=== PATIENT | male | born 1980 | race African-American/Black ===

== ENCOUNTER 2016-07-26 20:26 | Inpatient (IN) | payer OTHER ==
[~2016-07-26] VITALS: Ht 175.3 cm; Wt 73.9 kg
[2016-07-26 20:52] VITALS: BP 183/85; PULSE 91; RESP 16; TEMP 98.4; O2SAT 100
--- NOTE | 2016-07-26 21:01 | PD ---
HPI . Suicidal ideation Chief Complaint: Suicide attempt Time Seen by Provider: 20:54 Travel History International Travel<30 days: No Contact w/Intl Traveler<30days: No History of Present Illness HPI Patient is brought in under the [place] Act for a suicide attempt. He took 60 Excedrin at 6 PM. He states that he became nauseous following the ingestion and vomited some pills in a public bathroom. This was witnessed. The witness called the authorities and the patient was brought here. Patient lives at the [facility]. He states that he has recently realized that he might be birch. This is very concerning to him which has caused to feel suicidal. He reports no concerns about possible STD/HIV. PFSH Social History Tobacco Use: Yes Allergies-Medications (Allergen,Severity, Reaction): Coded Allergies: No Known Allergies (Unverified , 07/26/16) Reported Meds & Prescriptions Reported Meds & Active Scripts Active Reported Antabuse (Disulfiram) 250 Mg Tab 250 Mg PO DAILY Celexa (Citalopram Hydrobromide) 20 Mg Tab 20 Mg PO DAILY Hydrochlorothiazide 12.5 Mg Cap 12.5 Mg PO DAILY Amlodipine (Amlodipine Besylate) 5 Mg Tab 5 Mg PO DAILY Review of Systems Except as stated in HPI: all other systems reviewed are Neg Psychiatric: Positive: Depression, Suicidal Ideations Physical Exam Narrative GENERAL: This is a pleasant, healthy-appearing man in no acute distress. SKIN: Warm and dry. HEAD: Atraumatic. Normocephalic. EYES: Pupils equal and round. Extraocular movements are intact. ENT: No nasal bleeding or discharge. Mucous membranes pink and moist. NECK: Trachea midline. Neck is supple. CARDIOVASCULAR: Regular rate and rhythm. Heart sounds are normal. RESPIRATORY: No accessory muscle use. Lungs are clear with full air movement throughout. GASTROINTESTINAL: Abdomen soft, non-tender, nondistended. MUSCULOSKELETAL: No obvious deformities. No edema. NEUROLOGICAL: Awake and alert. No obvious cranial nerve deficits. Motor grossly within normal limits. Normal speech. PSYCHIATRIC: Appropriate interaction with the examiner. Good eye contact. Suicidal ideation with a plan and an attempt. Data Data Last Documented VS Vital Signs Date Time Temp Pulse Resp B/P Pulse Ox O2 Delivery O2 Flow Rate FiO2 07/27/16 04:03 86 16 127/66 99 Room Air 07/26/16 22:52 98.4 Orders Complete Blood Count With Diff (07/26/16 20:54) Comprehensive Metabolic Panel (07/26/16 20:54) Psych Screen (07/26/16 20:54) Drug Screen, Random Urine (07/26/16 20:54) Alcohol (Ethanol) (07/26/16 20:54) Tylenol (Acetaminophen) (07/26/16 22:00) Salicylates (Aspirin) (07/26/16 22:00) Ondansetron Inj (Zofran Inj) (07/26/16 21:45) Dextrose 5% In [place]... W/Sodium Bicarbon (07/26/16 22:30) Tylenol (Acetaminophen) (07/27/16 01:00) Salicylates (Aspirin) (07/27/16 01:00) Sodium Chlor 0.9% 1000 Ml Inj (Ns 1000 M (07/26/16 22:30) Sodium Bicarbonate 8.4% Inj (Sodium Bica (07/26/16 22:30) Sodium Bicarbonate 8.4% Inj (Sodium Bica (07/26/16 22:55) Ondansetron Inj (Zofran Inj) (07/27/16 01:15) Ua With No Microscopy (07/27/16 01:48) Dextrose 5% In [place]... W/Sodium Bicarbon (07/27/16 02:00) Sodium Bicarbonate 8.4% Inj (Sodium Bica (07/27/16 02:00) Blood Gas Venous (Vbg) (07/27/16 01:48) Basic Metabolic Panel (Bmp) (07/27/16 01:48) Basic Metabolic Panel (Bmp) (07/27/16 05:48) Basic Metabolic Panel (Bmp) (07/27/16 09:48) Basic Metabolic Panel (Bmp) (07/27/16 13:48) Basic Metabolic Panel (Bmp) (07/27/16 17:48) Basic Metabolic Panel (Bmp) (07/27/16 21:48) Sodium Bicarbonate 8.4% Inj (Sodium Bica (07/27/16 01:57) Salicylates (Aspirin) (07/27/16 02:11) Salicylates (Aspirin) (07/27/16 05:11) Salicylates (Aspirin) (07/27/16 08:11) Salicylates (Aspirin) (07/27/16 11:11) Potassium Chloride (Kcl) (07/27/16 03:00) Ua With No Microscopy (07/27/16 03:28) Urinary Catheter Insert/Apply (07/27/16 03:47) Labs Laboratory Tests Test 07/26/16 07/26/16 07/26/16 07/27/16 20:55 21:15 21:50 00:55 White Blood Count 13.2 TH/MM3 Red Blood Count 5.79 MIL/MM3 Hemoglobin 13.4 GM/DL Hematocrit 40.8 % Mean Corpuscular Volume 70.5 FL Mean Corpuscular Hemoglobin 23.1 PG Mean Corpuscular Hemoglobin 32.8 % Concent Red Cell Distribution Width 16.3 % Platelet Count 247 TH/MM3 Mean Platelet Volume 8.3 FL Neutrophils (%) (Auto) 67.6 % Lymphocytes (%) (Auto) 20.5 % Monocytes (%) (Auto) 10.2 % Eosinophils (%) (Auto) 0.9 % Basophils (%) (Auto) 0.8 % Neutrophils # (Auto) 8.9 TH/MM3 Lymphocytes # (Auto) 2.7 TH/MM3 Monocytes # (Auto) 1.3 TH/MM3 Eosinophils # (Auto) 0.1 TH/MM3 Basophils # (Auto) 0.1 TH/MM3 CBC Comment AUTO DIFF Differential Comment AUTO DIFF CONFIRMED Platelet Estimate NORMAL Platelet Morphology Comment ENLARGED Sodium Level 139 MEQ/L Potassium Level 3.4 MEQ/L Chloride Level 100 MEQ/L Carbon Dioxide Level 27.8 MEQ/L Anion Gap 11 MEQ/L Blood Urea Nitrogen 8 MG/DL Creatinine 1.35 MG/DL Estimat Glomerular Filtration 72 ML/MIN Rate Random Glucose 132 MG/DL Calcium Level 9.3 MG/DL Total Bilirubin 0.1 MG/DL Aspartate Amino Transf 45 U/L (AST/SGOT) Alanine Aminotransferase 65 U/L (ALT/SGPT) Alkaline Phosphatase 80 U/L Total Protein 8.2 GM/DL Albumin 4.0 GM/DL Acetaminophen Level 43.6 MCG/ML 43.6 MCG/ML Ethyl Alcohol Level LESS THAN 3 MG/DL Urine Opiates Screen NEG Urine Barbiturates Screen NEG Urine Amphetamines Screen NEG Urine Benzodiazepines Screen NEG Urine Cocaine Screen NEG Urine Cannabinoids Screen NEG Salicylates Level 28.8 MG/DL 29.4 MG/DL Test 07/27/16 02:00 Urine Color LIGHT-YELLOW Urine Turbidity CLEAR Urine pH 6.0 Urine Specific [place] 1.023 Urine Protein TRACE mg/dL Urine Glucose (UA) 1000 mg/dL Urine Ketones 10 mg/dL Urine Occult Blood NEG Urine Nitrite NEG Urine Bilirubin NEG Urine Urobilinogen LESS THAN 2.0 MG/DL Urine Leukocyte Esterase NEG Blood Gas Puncture Site PIV Blood Gas Patient Temperature 98.6 Venous Blood pH 7.41 Venous Blood Partial Pressure 34 mmHg CO2 Venous Blood Partial Pressure 52 mmHg O2 Venous Blood HCO3 21 mmol/L Venous Blood Oxygen Saturation 85 % Venous Blood Oxygen Content 15.1 Vol % Venous Blood Base Excess -2.6 mmol/L Oxygen Delivery Device ROOM AIR Blood Gas Inspired Oxygen 21 % Sodium Level 137 MEQ/L Potassium Level 2.8 MEQ/L Chloride Level 101 MEQ/L Carbon Dioxide Level 22.8 MEQ/L Anion Gap 13 MEQ/L Blood Urea Nitrogen 8 MG/DL Creatinine 1.59 MG/DL Estimat Glomerular Filtration 60 ML/MIN Rate Random Glucose 300 MG/DL Calcium Level 8.3 MG/DL MDM Medical Decision Making Medical Screen Exam Complete: Yes Emergency Medical Condition: Yes Differential Diagnosis Differential diagnosis includes but is not limited to depression with suicidal gesture, suicide attempt, suicidal ideation, attention seeking behavior. Narrative Course Patient presents under the Worrell Act for suicide attempt. He took Excedrin. I have ordered the usual psych medical clearance with the addition of a Tylenol and aspirin level at 10 PM which will be 4 hours after the reported ingestion. CBC & BMP Diagram 07/26/16 20:55 Acetaminophen level was 43.6 at about 9 PM. Aspirin level was 28.8 at 10 PM. I have queried up-to-date regarding management. I have ordered an amp of bicarbonate followed by a bicarbonate drip. The Tylenol and aspirin levels will be repeated at 1 AM. Patient's Tylenol and alcohol levels were about the same 2 hours later. Poison control was contacted. They are not concerned about the Tylenol level. They are concerned about the aspirin. They have suggested more aggressive alkalinization. Repeat aspirin levels have been ordered for every 3 hours. We will monitor his urine pH. Repeat potassium has dropped 2.9. Supplemental oral potassium has been ordered. He'll have another BMP done in another 4 hours. Critical Care Narrative Aggregate critical care time was 75 minutes. Time to perform other separately billable procedures was not included in the critical care time. My time did not include minutes spent treating any other patients simultaneously or on activities that did not directly contribute to the patient's treatment. The services I provided to this patient were to treat and/or prevent clinically significant deterioration due to aspirin and Tylenol overdose I provided critical care services requiring my management, as noted below: Chart data review, documentation time, medication orders and management, vital sign assessments/reviewing monitor data, ordering and reviewing lab tests, ordering and interpreting/reviewing x-rays and diagnostic studies, care of the patient and discussion of the patient with the admitting physicians Diagnosis Primary Impression: Intentional acetaminophen overdose Qualified Code: T39.1X2A - Intentional acetaminophen overdose, initial encounter Additional Impressions: Intentional aspirin overdose Qualified Code: T39.012A - Intentional aspirin overdose, initial encounter Suicidal ideation Admitting Information Admitting Physician Requests: Admit Condition: Stable Luda Patel MD July 26, 2016 21:00
[2016-07-26] MEDS ORDERED: CELE20TA PO ×2 (21:03)
[2016-07-26] MEDS ORDERED: HYDR12.57 PO ×2 (21:03)
[2016-07-26] MEDS ORDERED: ANTA250T PO ×2 (21:03)
[2016-07-26] MEDS ORDERED: AMLO5TAB2 PO (21:03)
[2016-07-26 21:20] LABS: AUTOMATED NEUTROPHIL # 8.9 TH/MM3 (1.8-7.7); BASOPHIL # 0.1 TH/MM3 (0-0.2); BASOPHIL % 0.8 % (0.0-2.0); EOSINOPHIL # 0.1 TH/MM3 (0-0.4); EOSINOPHIL % 0.9 % (0.0-4.0); HEMATOCRIT 40.8 % (39.0-51.0); LYMPH % 20.5 % (9.0-44.0); LYMPHOCYTE # 2.7 TH/MM3 (1.0-4.8); MEAN CELL VOLUME 70.5 FL (80.0-100.0); MEAN CORPUSCULAR HEMOGLOBIN 23.1 PG (27.0-34.0); MEAN CORPUSCULAR HGB CONC 32.8 % (32.0-36.0); MONO % 10.2 % (0.0-8.0); NEUT % 67.6 % (16.0-70.0); PLATELET COUNT 247 TH/MM3 (150-450); RED BLOOD COUNT 5.79 MIL/MM3 (4.50-5.90); RED CELL DISTRIBUTION WIDTH 16.3 % (11.6-17.2); WHITE BLOOD COUNT 13.2 TH/MM3 (4.0-11.0)
[2016-07-26 21:25] LABS: HEMO FLAGS AUTO DIFF
[2016-07-26 21:44] LABS: AMPHETAMINE, URINE NEG (NEG); BARBITURATES, URINE NEG (NEG); COCAINE, URINE NEG (NEG)
[2016-07-26] MEDS ORDERED: ONDANSETRON HCL 4 MG/2 ML VIAL IV PUSH ONE (21:45)
[2016-07-26 22:03] LABS: PLATELET ESTIMATE SMEAR NORMAL (NORMAL); PLATELET MORPHOLOGY ENLARGED (NORMAL); SCAN/DIFF AUTO DIFF CONFIRMED
[2016-07-26 22:15] LABS: ACETAMINOPHEN 43.6 MCG/ML (10.0-30.0); ALKALINE PHOSPHATASE 80 U/L (45-117); ALT (GPT) 65 U/L (12-78); ANION GAP 11 MEQ/L (5-15); AST (GOT) 45 U/L (15-37); BICARBONATE 27.8 MEQ/L (21.0-32.0); BLOOD UREA NITROGEN 8 MG/DL (7-18); CHLORIDE 100 MEQ/L (98-107); GLOMERULAR FILTRATION RATE 72 ML/MIN (>89); POTASSIUM 3.4 MEQ/L (3.5-5.1); SODIUM (NA) 139 MEQ/L (136-145); TOTAL BILIRUBIN ADULT 0.1 MG/DL (0.2-1.0)
[2016-07-26] MEDS ORDERED: SODIUM BICARBONATE 8.4% INJ 100 MEQ in DEXTROSE 5% IN WATE 1000ML INJ 1,000 ML IV SCH ×2 (22:30)
[2016-07-26] MEDS ORDERED: SODIUM BICARBONATE 8.4% INJ 50 MEQ/50 ML SYR IV PUSH ONE (22:30)
[2016-07-26] MEDS ORDERED: SODIUM CHLOR 0.9% 1000 ML INJ 1,000 ML IV ONE (22:30)
[2016-07-26 22:52] VITALS: BP 170/85; PULSE 100; RESP 20; TEMP 98.4; O2SAT 100
[2016-07-26] MEDS ORDERED: SODIUM BICARBONATE 8.4% INJ 50 MEQ/50 ML SYR ONE (22:55)
[2016-07-27] VITALS (10 sets, daily range): BP systolic 110–163; BP diastolic 54–74; PULSE 76–97; RESP 15–23; TEMP 98.4–98.6; O2SAT 98–100
[2016-07-27] MEDS ORDERED: ONDANSETRON HCL 4 MG/2 ML VIAL IV PUSH ONE (01:15)
[2016-07-27] MEDS ORDERED: SODIUM BICARBONATE 8.4% INJ 50 MEQ/50 ML SYR ONE (01:57)
[2016-07-27] MEDS: SODIUM BICARBONATE 8.4% INJ 150 MEQ in DEXTROSE 5% IN WATE 1000ML INJ 1,000 ML IV SCH ×4 (02:00→08:04)
[2016-07-27] MEDS ORDERED: SODIUM BICARBONATE 8.4% INJ 50 MEQ/50 ML SYR IV PUSH ONE (02:00)
[2016-07-27 02:07] LABS: BLOOD GAS VENOUS BASE EXCESS -2.6 mmol/L (-2-2); BLOOD GAS VENOUS HCO3 21 mmol/L (22-26); BLOOD GAS VENOUS O2 CONTENT 15.1 Vol % (9.0-17.0); BLOOD GAS VENOUS O2 HGB SAT 85 % (70-76); BLOOD GAS VENOUS PCO2 34 mmHg (44-48); BLOOD GAS VENOUS PO2 52 mmHg (35-40); BLOOD GAS VENOUS pH 7.41 (7.360-7.400); CRITICAL VALUE NO; DRAW SITE PIV; FIO2 21 %; OXYGEN DEVICE ROOM AIR; STAT NO; TEMP CORR TO 98.6
[2016-07-27 02:15] LABS: BLOOD, URINE NEG (NEG); GLUCOSE,URINE 1000 mg/dL (NEG); KETONE, URINE 10 mg/dL (NEG); NITRITE,URINE NEG (NEG); URINE COLOR LIGHT-YELLOW (YELLW/STRAW)
[2016-07-27 02:39] LABS: BICARBONATE 22.8 MEQ/L (21.0-32.0)
[2016-07-27 02:43] LABS: POTASSIUM 2.8 MEQ/L (3.5-5.1)
[2016-07-27] MEDS: POTASSIUM CHLORIDE 20 MEQ CONTROLLED RELEASE TAB PO SCH ×4 (03:00→08:05)
[2016-07-27 04:30] LABS: BLOOD, URINE NEG (NEG); GLUCOSE,URINE 1000 mg/dL (NEG); KETONE, URINE 10 mg/dL (NEG); NITRITE,URINE NEG (NEG); PH, URINE 5.5 (5.0-8.5); URINE COLOR LIGHT-YELLOW (YELLW/STRAW)
[2016-07-27 05:12] LABS: BLOOD, URINE NEG (NEG); GLUCOSE,URINE 1000 mg/dL (NEG); KETONE, URINE 10 mg/dL (NEG); NITRITE,URINE NEG (NEG); URINE COLOR LIGHT-YELLOW (YELLW/STRAW)
[2016-07-27] MEDS ORDERED: SODIUM CHLORIDE 0.9% FLUSH 10 ML FLUSH PRN (05:15)
[2016-07-27] MEDS ORDERED: RESP: ALBUTEROL 2.5 MG/IPRATROPIUM 0.5 MG NEB (PRN) INH (05:15)
[2016-07-27] MEDS ORDERED: CHLORHEXIDINE GLUCONATE 2 % 1 PACK (2 CLOTHS) TOP PRN (05:15)
[2016-07-27] MEDS ORDERED: MISCELLANEOUS NURSING INFORMATION XX SCH (05:15)
--- NOTE | 2016-07-27 05:19 | HHI.HP ---
[facility] Service Critical Care Medicine Primary Care Physician [facility] Admission Diagnosis aspirin OD Diagnosis: Travel History International Travel<30 Days: No Contact w/Intl Traveler <30 Da: No Traveled to Known Affected Are: No History of Present Illness 36-year-old very pleasant gentleman is brought in under the Worrell Act for a suicide attempt. He took 60 Excedrin at 6 PM. He states that he became nauseous following the ingestion and vomited some pills in a public bathroom. This was witnessed. The witness called the authorities and the patient was brought here. Patient lives at the [facility]. He states that he has recently realized that he might be birch. This is very concerning to him which has caused to feel suicidal. Review of Systems Constitutional: DENIES: Diaphoretic episodes, Fatigue, Fever, Weight gain, Weight loss, Chills, Dizziness, Change in appetite, Night Sweats Endocrine: DENIES: Heat/cold intolerance, Polydipsia, Polyuria, Polyphagia Eyes: DENIES: Blurred vision, Diplopia, Eye inflammation, Eye pain, Vision loss , Photosensitivity, Double Vision Ears, nose, mouth, throat: DENIES: Tinnitus, Hearing loss, Vertigo, Nasal discharge, Oral lesions, Throat pain, Hoarseness, Ear Pain, Running Nose, Epistaxis, Sinus Pain, Toothache, Odynophagia Respiratory: DENIES: Apneas, Cough, Snoring, Wheezing, Hemoptysis, Sputum production, Shortness of breath Cardiovascular: DENIES: Chest pain, Palpitations, Syncope, Dyspnea on Exertion , PND, Lower Extremity Edema, Orthopnea, Claudication Gastrointestinal: COMPLAINS OF: Nausea, Vomiting, DENIES: Abdominal pain, Black stools, Bloody stools, Constipation, Diarrhea, Difficulty Swallowing, Anorexia Genitourinary: DENIES: Sexual dysfunction, Urinary frequency, Urinary incontinence, Urgency, Hematuria, Dysuria, Nocturia, Penile Discharge, Testicular Pain, Testicular Swelling Musculoskeletal: DENIES: Joint pain, Muscle aches, Stiffness, Joint Swelling, Back pain, Neck pain Integumentary: DENIES: Abnormal pigmentation, Nail changes, Pruritus, Rash Hematologic/lymphatic: DENIES: Bruising, Lymphadenopathy Immunologic/allergic: DENIES: Eczema, Urticaria Neurologic: DENIES: Abnormal gait, Headache, Localized weakness, Paresthesias, Seizures, Speech Problems, Tremor, Poor Balance Psychiatric: COMPLAINS OF: Depression, Suicidal Ideation, DENIES: Anxiety, Confusion, Mood changes, Hallucinations, Agitation, Homicidal Ideation, Delusions Past Family Social History Allergies: Coded Allergies: No Known Allergies (Unverified , 07/26/16) Past Medical History Hypertension Past Surgical History None Reported Medications Reported Meds & Active Scripts Active Reported Antabuse (Disulfiram) 250 Mg Tab 250 Mg PO DAILY Celexa (Citalopram Hydrobromide) 20 Mg Tab 20 Mg PO DAILY Hydrochlorothiazide 12.5 Mg Cap 12.5 Mg PO DAILY Amlodipine (Amlodipine Besylate) 5 Mg Tab 5 Mg PO DAILY Active Ordered Medications Current Medications Medications (Trade) Dose Ordered Sig/Arturo Route PRN Reason Start Time Stop Time Status Last Admin Dose Admin Sodium Bicarbonate/ Dextrose (Sodium Bicarbonate 8.4% Inj/D5W 1000 ml Inj) 1,150 ml @ 250 mls/hr Q4H36M IV 07/27/16 02:00 07/27/16 02:00 Sodium Chloride (NS Flush) 2 ml UNSCH PRN .XX FLUSH AFTER USING IV ACCESS 07/27/16 05:15 Sodium Chloride (NS Flush) 2 ml BID .XX 07/27/16 09:00 Miscellaneous Information 1 Q361D XX 07/27/16 05:15 Chlorhexidine Gluconate (Chlorhexidine 2% Cloth) 3 pack Taper DAILY@04 TOP 07/28/16 04:00 07/24/17 03:59 Chlorhexidine Gluconate (Chlorhexidine 2% Cloth) 3 pack UNSCH PRN TOP HYGIENIC CARE 07/27/16 05:15 Family History Noncontributory Physical Exam Vital Signs Vital Signs Date Time Temp Pulse Resp B/P Pulse Ox O2 Delivery O2 Flow Rate FiO2 07/27/16 04:57 83 16 122/57 99 Room Air 07/27/16 04:03 86 16 127/66 99 Room Air 07/27/16 02:11 93 16 110/54 99 Room Air 07/26/16 22:52 98.4 100 20 170/85 100 Room Air 07/26/16 20:56 100 Room Air 07/26/16 20:52 98.4 91 16 183/85 100 Physical Exam GENERAL: Well-nourished, well-developed patient. SKIN: Warm and dry. HEAD: Normocephalic. EYES: No scleral icterus. No injection or drainage. NECK: Supple, trachea midline. No JVD or lymphadenopathy. CARDIOVASCULAR: Regular rate and rhythm without murmurs, gallops, or rubs. RESPIRATORY: Breath sounds equal bilaterally. No accessory muscle use. GASTROINTESTINAL: Abdomen soft, non-tender, nondistended. MUSCULOSKELETAL: No cyanosis, or edema. BACK: Nontender without obvious deformity. No CVA tenderness. EXTREMITIES: No clubbing cyanosis or edema Laboratory Laboratory Tests Test 07/26/16 07/26/16 07/26/16 07/27/16 20:55 21:15 21:50 00:55 White Blood Count 13.2 Red Blood Count 5.79 Hemoglobin 13.4 Hematocrit 40.8 Mean Corpuscular Volume 70.5 Mean Corpuscular Hemoglobin 23.1 Mean Corpuscular Hemoglobin 32.8 Concent Red Cell Distribution Width 16.3 Platelet Count 247 Mean Platelet Volume 8.3 Neutrophils (%) (Auto) 67.6 Lymphocytes (%) (Auto) 20.5 Monocytes (%) (Auto) 10.2 Eosinophils (%) (Auto) 0.9 Basophils (%) (Auto) 0.8 Neutrophils # (Auto) 8.9 Lymphocytes # (Auto) 2.7 Monocytes # (Auto) 1.3 Eosinophils # (Auto) 0.1 Basophils # (Auto) 0.1 CBC Comment AUTO DIFF Differential Comment AUTO DIFF CONFIRMED Platelet Estimate NORMAL Platelet Morphology Comment ENLARGED Sodium Level 139 Potassium Level 3.4 Chloride Level 100 Carbon Dioxide Level 27.8 Anion Gap 11 Blood Urea Nitrogen 8 Creatinine 1.35 Estimat Glomerular Filtration 72 Rate Random Glucose 132 Calcium Level 9.3 Total Bilirubin 0.1 Aspartate Amino Transf 45 (AST/SGOT) Alanine Aminotransferase 65 (ALT/SGPT) Alkaline Phosphatase 80 Total Protein 8.2 Albumin 4.0 Acetaminophen Level 43.6 43.6 Ethyl Alcohol Level LESS THAN 3 Urine Opiates Screen NEG Urine Barbiturates Screen NEG Urine Amphetamines Screen NEG Urine Benzodiazepines Screen NEG Urine Cocaine Screen NEG Urine Cannabinoids Screen NEG Salicylates Level 28.8 29.4 Test 07/27/16 07/27/16 07/27/16 02:00 04:00 05:00 Urine Color LIGHT-YELLOW LIGHT-YELLOW LIGHT-YELLOW Urine Turbidity CLEAR CLEAR CLEAR Urine pH 6.0 5.5 5.0 Urine Specific [place] 1.023 1.024 1.033 Urine Protein TRACE TRACE NEG Urine Glucose (UA) 1000 1000 1000 Urine Ketones 10 10 10 Urine Occult Blood NEG NEG NEG Urine Nitrite NEG NEG NEG Urine Bilirubin NEG NEG NEG Urine Urobilinogen LESS THAN 2.0 LESS THAN 2.0 LESS THAN 2.0 Urine Leukocyte Esterase NEG NEG NEG Blood Gas Puncture Site PIV Blood Gas Patient Temperature 98.6 Venous Blood pH 7.41 Venous Blood Partial Pressure 34 CO2 Venous Blood Partial Pressure 52 O2 Venous Blood HCO3 21 Venous Blood Oxygen Saturation 85 Venous Blood Oxygen Content 15.1 Venous Blood Base Excess -2.6 Oxygen Delivery Device ROOM AIR Blood Gas Inspired Oxygen 21 Sodium Level 137 Potassium Level 2.8 Chloride Level 101 Carbon Dioxide Level 22.8 Anion Gap 13 Blood Urea Nitrogen 8 Creatinine 1.59 Estimat Glomerular Filtration 60 Rate Random Glucose 300 Calcium Level 8.3 Microscopic Urinalysis Comment Salicylates Level 37.7 Result Diagram: 07/26/16205407/27/16199 Assessment and Plan Assessment and Plan Metabolic acidosis - Due to Excedrin overdose - Sodium bicarbonate drip - Monitor labs and ABGs - Poison Control Center notified and following - Monitor urine output Suicidal intentions - Psychiatry consult Hypertension - Resume home meds Hypokalemia - Replacement DVT GI prophylaxis - Early aggressive mobilization - Regular diet when acidosis resolves Critical Care: The total critical care time was 35 minutes. Time to perform other separately billable procedures was not included in the critical care time. Mahendra Flowers MD July 27, 2016 05:19
[2016-07-27 06:21] LABS: BLOOD, URINE NEG (NEG); GLUCOSE,URINE 1000 mg/dL (NEG); KETONE, URINE 10 mg/dL (NEG); NITRITE,URINE NEG (NEG); PH, URINE 5.5 (5.0-8.5); URINE COLOR YELLOW (YELLW/STRAW)
[2016-07-27] MEDS: SODIUM CHLORIDE 0.9% FLUSH 10 ML FLUSH SCH ×2 (07:24→21:00)
[2016-07-27 08:11] LABS: BLOOD, URINE NEG (NEG); GLUCOSE,URINE 1000 mg/dL (NEG); KETONE, URINE 10 mg/dL (NEG); NITRITE,URINE NEG (NEG); URINE COLOR LIGHT-YELLOW (YELLW/STRAW)
[2016-07-27] MEDS ORDERED: DEXTROSE 5% IV ONE ×6 (09:00→14:00)
[2016-07-27] MEDS ORDERED: WATER IV ONE ×2 (09:00)
[2016-07-27] MEDS ORDERED: ACETYLCYSTEINE IV ONE ×6 (09:00→14:00)
[2016-07-27] MEDS ORDERED: ONDANSETRON HCL 4 MG/2 ML VIAL IV PUSH PRN (09:00)
[2016-07-27 09:07] LABS: BLOOD GAS BASE EXCESS 7.3 mmol/L (-2-2); BLOOD GAS HCO3 30 mmol/L (22-26); BLOOD GAS METHEMOGLOBIN 0.8 % (0-2); BLOOD GAS O2 HGB SATURATION 96 % (90-100); BLOOD GAS OXYGEN CONTENT 17.6 Vol % (12.0-20.0); BLOOD GAS PCO2 33 mmHg (38-42); BLOOD GAS PO2 93 mmHG (61-120); BLOOD GAS TOTAL HGB 12.9 G/DL (12.0-16.0); TEMP CORR TO 98.6
[2016-07-27 09:08] LABS: CRITICAL VALUE YES; DRAW SITE RT RADIAL; FIO2 21 %; NUMBER OF ARTERIAL PUNCTURES 1; STAT NO; ULNAR PULSE PRESENT
[2016-07-27] MEDS ORDERED: WATE IV ONE ×4 (09:45→14:00)
[2016-07-27 11:26] LABS: ALKALINE PHOSPHATASE 61 U/L (45-117); ALT (GPT) 55 U/L (12-78); ANION GAP 13 MEQ/L (5-15); AST (GOT) 27 U/L (15-37); BICARBONATE 31.3 MEQ/L (21.0-32.0); BLOOD UREA NITROGEN 8 MG/DL (7-18); CHLORIDE 96 MEQ/L (98-107); CREATINE KINASE 874 U/L (39-308); GLOMERULAR FILTRATION RATE 72 ML/MIN (>89); INDIRECT BILIRUBIN 0.1 MG/DL (0.0-0.8); SODIUM (NA) 140 MEQ/L (136-145); TOTAL BILIRUBIN ADULT 0.2 MG/DL (0.2-1.0)
[2016-07-27 11:46] LABS: POTASSIUM 2.6 MEQ/L (3.5-5.1)
[2016-07-27 12:15] LABS: CKMB 1.9 NG/ML (0.5-3.6)
[2016-07-27] MEDS ORDERED: POTASSIUM CHLORIDE 20 MEQ CONTROLLED RELEASE TAB PO ONE (13:00)
[2016-07-27] MEDS: POTASSIUM CHLOR 20 MEQ PREMIX 100 ML IV SCH ×2 (13:05→16:16)
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
[2016-07-27] MEDS ORDERED: PROMETHAZINE HCL 25 MG TAB PO PRN (14:15)
[2016-07-27 14:50] LABS: ACETAMINOPHEN 8.5 MCG/ML (10.0-30.0)
[2016-07-27] MEDS ORDERED: POTASSIUM PHOSPHATE MONOBASIC 500 MG TAB PO/TUBE PRN (15:30)
[2016-07-27] MEDS ORDERED: MAGNESIUM SULFATE INJ 2 GM in SODIUM CHLORIDE 0.9% INJ 96 ML IV PRN (15:30)
[2016-07-27] MEDS ORDERED: MAGNESIUM OXIDE 400 MG TAB PO PRN (15:30)
[2016-07-27] MEDS ORDERED: MAGNESIUM SULFATE INJ 4 GM in SODIUM CHLORIDE 0.9% INJ 92 ML IV PRN (15:30)
[2016-07-27] MEDS ORDERED: POTASSIUM PHOSPHATE MONOBASIC 500 MG TAB PO PRN (15:30)
[2016-07-27] MEDS ORDERED: POTASSIUM CHLOR 20 MEQ PREMIX 100 ML IV PRN (15:30)
[2016-07-27] MEDS ORDERED: POTASSIUM CHLORIDE 25 MEQ EFFERVESCENT TAB PO PRN (15:30)
[2016-07-27] MEDS ORDERED: POTASSIUM CHLOR 40 MEQ PREMIX 100 ML IV PRN ×2 (15:30)
[2016-07-27] MEDS ORDERED: SODIUM PHOSPHATE INJ 30 MMOL in SODIUM CHLOR 0.9% 250 ML INJ 240 ML IV PRN (15:30)
[2016-07-27 15:42] LABS: BICARBONATE 27.8 MEQ/L (21.0-32.0)
[2016-07-27 15:47] LABS: POTASSIUM 3.3 MEQ/L (3.5-5.1)
[2016-07-27] MEDS: CITALOPRAM HYDROBROMIDE 20 MG TAB PO SCH (18:32)
[2016-07-27] MEDS: amLODIPine BESYLATE 5 MG TAB PO SCH (18:33)
[2016-07-27] MEDS: HYDROCHLOROTHIAZIDE 12.5 MG CAP PO SCH (18:33)
[2016-07-27 20:32] LABS: BICARBONATE 31.2 MEQ/L (21.0-32.0)
[2016-07-27 20:34] LABS: POTASSIUM 2.6 MEQ/L (3.5-5.1)
[2016-07-27] MEDS: POTASSIUM CHLOR 20 MEQ PREMIX 100 ML IV PRN ×3 (20:45→23:14)
[2016-07-27] MEDS ORDERED: hydrALAZINE HCL 20 MG/ML VIAL IV PUSH PRN (23:15)
[2016-07-28] VITALS (12 sets, daily range): BP systolic 137–177; BP diastolic 58–88; PULSE 74–115; RESP 20–25; TEMP 98–99.2; O2SAT 96–100
[2016-07-28 00:24] LABS: BICARBONATE 27.7 MEQ/L (21.0-32.0); MAGNESIUM 1.9 MG/DL (1.5-2.5); POTASSIUM 3.2 MEQ/L (3.5-5.1)
[2016-07-28] MEDS: POTASSIUM CHLOR 20 MEQ PREMIX 100 ML IV PRN (02:23)
[2016-07-28] MEDS: CHLORHEXIDINE GLUCONATE 2 % 1 PACK (2 CLOTHS) TOP SCH (04:00)
[2016-07-28 04:35] LABS: AUTOMATED NEUTROPHIL # 17.4 TH/MM3 (1.8-7.7); BASOPHIL % 0.2 % (0.0-2.0); EOSINOPHIL % 0.1 % (0.0-4.0); HEMATOCRIT 41.1 % (39.0-51.0); LYMPH % 7.1 % (9.0-44.0); LYMPHOCYTE # 1.5 TH/MM3 (1.0-4.8); MEAN CELL VOLUME 69.2 FL (80.0-100.0); MEAN CORPUSCULAR HEMOGLOBIN 23.5 PG (27.0-34.0); MONO % 8.8 % (0.0-8.0); NEUT % 83.8 % (16.0-70.0); PLATELET COUNT 250 TH/MM3 (150-450); RED BLOOD COUNT 5.94 MIL/MM3 (4.50-5.90); RED CELL DISTRIBUTION WIDTH 16.4 % (11.6-17.2); WHITE BLOOD COUNT 20.7 TH/MM3 (4.0-11.0)
[2016-07-28 04:37] LABS: HEMO FLAGS AUTO DIFF
[2016-07-28 04:43] LABS: INTERNATIONAL NORMALIZED RATIO 1.1 RATIO; PROTHROMBIN TIME - PATIENT 12.5 SEC (9.8-11.6)
[2016-07-28 04:56] LABS: ACETAMINOPHEN LESS THAN 2.0 MCG/ML (10.0-30.0)
[2016-07-28 06:53] LABS: PLATELET ESTIMATE SMEAR NORMAL (NORMAL); PLATELET MORPHOLOGY NORMAL (NORMAL); SCAN/DIFF AUTO DIFF CONFIRMED
[2016-07-28] MEDS: HYDROCHLOROTHIAZIDE 12.5 MG CAP PO SCH (08:06)
[2016-07-28] MEDS: amLODIPine BESYLATE 5 MG TAB PO SCH (08:07)
[2016-07-28] MEDS: CITALOPRAM HYDROBROMIDE 20 MG TAB PO SCH (08:07)
[2016-07-28] MEDS: SODIUM CHLORIDE 0.9% FLUSH 10 ML FLUSH SCH ×2 (08:07→21:00)
--- NOTE | 2016-07-28 09:06 | HHI.CCPN ---
Subjective Remarks/Hospital Course 36-year-old very pleasant gentleman is brought in under the [place] Act for a suicide attempt. He took 60 Excedrin at 6 PM. He states that he became nauseous following the ingestion and vomited some pills in a public bathroom. This was witnessed. The witness called the authorities and the patient was brought here. Patient lives at the [facility]. He states that he has recently realized that he might be birch. This is very concerning to him which has caused to feel suicidal. 07/28: Alert, O X 3, cooperative. Medically stable for transfer to Psych. Objective Vital Signs Date Time Temp Pulse Resp B/P Pulse Ox O2 Delivery O2 Flow Rate FiO2 07/28/16 08:00 98.0 89 22 177/84 100 07/28/16 07:00 Room Air Intake and Output 07/27/16 07/27/16 07/28/16 08:00 16:00 00:00 Intake Total 3879 ml 1745 ml Output Total 700 ml 1250 ml 2000 ml Balance -700 ml 2629 ml -255 ml Result Diagram: 07/28/16 0403 07/27/16 2338 Objective Remarks GENERAL: Well-nourished, well-developed patient. SKIN: Warm and dry. HEAD: Normocephalic. NECK: Supple, trachea midline.Airway widely patent. CARDIOVASCULAR: Regular rate and rhythm without murmurs, gallops, or rubs. No JVD. RESPIRATORY: Breath sounds equal bilaterally. No accessory muscle use. GASTROINTESTINAL: Abdomen soft, non-tender, nondistended. Benign. MUSCULOSKELETAL: No cyanosis, or edema. BACK: Nontender without obvious deformity. No CVA tenderness. EXTREMITIES: No clubbing cyanosis or edema NEURO: O X 3, cooperative. M/S grossly intact. A/P Assessment and Plan Metabolic acidosis - Due to Excedrin overdose - Sodium bicarbonate drip - Monitor labs and ABGs - Poison Control Center notified and following - Monitor urine output Suicidal intentions - Psychiatry consult Hypertension - Resume home meds Hypokalemia - Replacement DVT GI prophylaxis - Early aggressive mobilization - Regular diet Overall impression: No residual affects from attempted OD. Medically stable to go to Psychiatry. Ford Champagne MD July 28, 2016 09:06
--- NOTE | 2016-07-28 09:15 | HHI.DS ---
Discharge Summary Admission Date July 27, 2016 at 04:31 Discharge Date: July 28, 2016 Admitting Diagnosis aspirin OD Brief History 36-year-old very pleasant gentleman is brought in under the [place] Act for a suicide attempt. He took 60 Excedrin at 6 PM. He states that he became nauseous following the ingestion and vomited some pills in a public bathroom. This was witnessed. The witness called the authorities and the patient was brought here. Patient lives at the [facility]. He states that he has recently realized that he might be birch. This is very concerning to him which has caused to feel suicidal. CBC/BMP: 07/28/16 0403 07/27/16 2338 Significant Findings Laboratory Tests Test 07/26/16 07/26/16 07/27/16 07/27/16 20:55 21:50 00:55 02:00 White Blood Count 13.2 TH/MM3 (4.0-11.0) Mean Corpuscular Volume 70.5 FL (80.0-100.0) Mean Corpuscular Hemoglobin 23.1 PG (27.0-34.0) Monocytes (%) (Auto) 10.2 % (0.0-8.0) Neutrophils # (Auto) 8.9 TH/MM3 (1.8-7.7) Monocytes # (Auto) 1.3 TH/MM3 (0-0.9) Platelet Morphology Comment ENLARGED (NORMAL) Potassium Level 3.4 MEQ/L 2.8 MEQ/L (3.5-5.1) (3.5-5.1) Creatinine 1.35 MG/DL 1.59 MG/DL (0.60-1.30) (0.60-1.30) Estimat Glomerular Filtration 72 ML/MIN (>89) 60 ML/MIN (>89) Rate Random Glucose 132 MG/DL 300 MG/DL (74-106) (74-106) Total Bilirubin 0.1 MG/DL (0.2-1.0) Aspartate Amino Transf 45 U/L (15-37) (AST/SGOT) Acetaminophen Level 43.6 MCG/ML 43.6 MCG/ML (10.0-30.0) (10.0-30.0) Salicylates Level 28.8 MG/DL 29.4 MG/DL (2.8-20.0) (2.8-20.0) Urine Glucose (UA) 1000 mg/dL (NEG) Urine Ketones 10 mg/dL (NEG) Venous Blood pH 7.41 (7.360-7.400) Venous Blood Partial Pressure 34 mmHg (44-48) CO2 Venous Blood Partial Pressure 52 mmHg (35-40) O2 Venous Blood HCO3 21 mmol/L (22-26) Venous Blood Oxygen Saturation 85 % (70-76) Venous Blood Base Excess -2.6 mmol/L (-2-2) Calcium Level 8.3 MG/DL (8.5-10.1) Test 07/27/16 07/27/16 07/27/16 07/27/16 04:00 05:00 05:30 05:55 Urine Glucose (UA) 1000 mg/dL 1000 mg/dL 1000 mg/dL 1000 mg/dL (NEG) (NEG) (NEG) (NEG) Urine Ketones 10 mg/dL (NEG) 10 mg/dL (NEG) 10 mg/dL (NEG) 10 mg/dL (NEG) Salicylates Level 37.7 MG/DL (2.8-20.0) Acetaminophen Level 51.0 MCG/ML (10.0-30.0) Urine Specific [place] 1.038 (1.002-1.035) Test 07/27/16 07/27/16 07/27/16 07/27/16 08:57 10:01 13:51 18:33 Blood Gas HCO3 30 mmol/L (22-26) Blood Gas Base Excess 7.3 mmol/L (-2-2) Arterial Blood pH 7.57 (7.380-7.420) Arterial Blood Partial 33 mmHg (38-42) Pressure CO2 Potassium Level 2.6 MEQ/L 3.3 MEQ/L 2.6 MEQ/L (3.5-5.1) (3.5-5.1) (3.5-5.1) Chloride Level 96 MEQ/L 97 MEQ/L (98-107) (98-107) Creatinine 1.36 MG/DL 1.35 MG/DL 1.65 MG/DL (0.60-1.30) (0.60-1.30) (0.60-1.30) Estimat Glomerular Filtration 72 ML/MIN (>89) 72 ML/MIN (>89) 57 ML/MIN (>89) Rate Random Glucose 201 MG/DL 175 MG/DL (74-106) (74-106) Total Creatine Kinase 874 U/L (39-308) Salicylates Level 25.0 MG/DL (2.8-20.0) Acetaminophen Level 8.5 MCG/ML (10.0-30.0) Blood Urea Nitrogen 6 MG/DL (7-18) Test 07/27/16 07/28/16 23:38 04:03 Potassium Level 3.2 MEQ/L (3.5-5.1) Creatinine 1.39 MG/DL (0.60-1.30) Estimat Glomerular Filtration 70 ML/MIN (>89) Rate Random Glucose 172 MG/DL (74-106) Phosphorus Level 1.4 MG/DL 2.3 MG/DL (2.5-4.9) (2.5-4.9) Acetaminophen Level 2.0 MCG/ML LESS THAN 2.0 (10.0-30.0) MCG/ML (10.0-30.0) White Blood Count 20.7 TH/MM3 (4.0-11.0) Red Blood Count 5.94 MIL/MM3 (4.50-5.90) Mean Corpuscular Volume 69.2 FL (80.0-100.0) Mean Corpuscular Hemoglobin 23.5 PG (27.0-34.0) Neutrophils (%) (Auto) 83.8 % (16.0-70.0) Lymphocytes (%) (Auto) 7.1 % (9.0-44.0) Monocytes (%) (Auto) 8.8 % (0.0-8.0) Neutrophils # (Auto) 17.4 TH/MM3 (1.8-7.7) Monocytes # (Auto) 1.8 TH/MM3 (0-0.9) Prothrombin Time 12.5 SEC (9.8-11.6) Transfer Summary 36-year-old very pleasant gentleman is brought in under the [place] Act for a suicide attempt. He took 60 Excedrin at 6 PM. He states that he became nauseous following the ingestion and vomited some pills in a public bathroom. This was witnessed. The witness called the authorities and the patient was brought here. Patient lives at the [facility]. He states that he has recently realized that he might be birch. This is very concerning to him which has caused to feel suicidal. 07/28: Alert, O X 3, cooperative. Medically stable for transfer to Psych. Hospital Course 36-year-old very pleasant gentleman is brought in under the [place] Act for a suicide attempt. He took 60 Excedrin at 6 PM. He states that he became nauseous following the ingestion and vomited some pills in a public bathroom. This was witnessed. The witness called the authorities and the patient was brought here. Patient lives at the [facility]. He states that he has recently realized that he might be birch. This is very concerning to him which has caused to feel suicidal. 07/28: Alert, O X 3, cooperative. Medically stable for transfer to Psych. Pt Condition on Discharge: Good Discharge Disposition: Disc to Psych Care Fac Ford Champagne MD July 28, 2016 09:15
[2016-07-28 12:47] LABS: AUTOMATED NEUTROPHIL # 13.5 TH/MM3 (1.8-7.7); BASOPHIL % 0.3 % (0.0-2.0); EOSINOPHIL # 0.1 TH/MM3 (0-0.4); EOSINOPHIL % 0.6 % (0.0-4.0); HEMATOCRIT 41.4 % (39.0-51.0); LYMPH % 7.8 % (9.0-44.0); LYMPHOCYTE # 1.3 TH/MM3 (1.0-4.8); MEAN CELL VOLUME 70.5 FL (80.0-100.0); MEAN CORPUSCULAR HEMOGLOBIN 23.4 PG (27.0-34.0); MEAN CORPUSCULAR HGB CONC 33.2 % (32.0-36.0); MONO % 8.5 % (0.0-8.0); NEUT % 82.8 % (16.0-70.0); PLATELET COUNT 241 TH/MM3 (150-450); RED BLOOD COUNT 5.87 MIL/MM3 (4.50-5.90); RED CELL DISTRIBUTION WIDTH 16.7 % (11.6-17.2); WHITE BLOOD COUNT 16.3 TH/MM3 (4.0-11.0)
[2016-07-28 12:49] LABS: HEMO FLAGS AUTO DIFF
[2016-07-28 13:17] LABS: ALKALINE PHOSPHATASE 68 U/L (45-117); ALT (GPT) 50 U/L (12-78); ANION GAP 9 MEQ/L (5-15); AST (GOT) 59 U/L (15-37); BICARBONATE 27.9 MEQ/L (21.0-32.0); BLOOD UREA NITROGEN 6 MG/DL (7-18); CHLORIDE 103 MEQ/L (98-107); GLOMERULAR FILTRATION RATE 64 ML/MIN (>89); SODIUM (NA) 140 MEQ/L (136-145); TOTAL BILIRUBIN ADULT 0.2 MG/DL (0.2-1.0)
[2016-07-28 13:29] LABS: MYELOCYTES 1 % (0-0); NEUTROPHIL # MANUAL DIFF 15.3 TH/MM3 (1.8-7.7); PLATELET ESTIMATE SMEAR NORMAL (NORMAL); POLYS (SEG NEUTROPHILS) 93 % (16-70); WBC DIFF SAMPLE 100
[2016-07-28 13:30] LABS: PLATELET MORPHOLOGY NORMAL (NORMAL); SCAN/DIFF FINAL DIFF MANUAL
[2016-07-28 20:03] LABS: CKMB 3.5 NG/ML (0.5-3.6)
[2016-07-28] MEDS ORDERED: EPINEPHrine HCL (1:10,000) 1 MG/10 ML SYRINGE ONE (20:11)
[2016-07-29] VITALS (7 sets, daily range): BP systolic 152–181; BP diastolic 85–115; PULSE 75–108; RESP 16–18; TEMP 97.6–99.4; O2SAT 92–99
[2016-07-29] MEDS: CHLORHEXIDINE GLUCONATE 2 % 1 PACK (2 CLOTHS) TOP SCH ×3 (00:25→23:07)
[2016-07-29] MEDS ORDERED: amLODIPine BESYLATE 5 MG TAB PO ONE ×2 (05:30→10:15)
[2016-07-29] MEDS: CITALOPRAM HYDROBROMIDE 20 MG TAB PO SCH (08:28)
[2016-07-29] MEDS: amLODIPine BESYLATE 5 MG TAB PO SCH (08:28)
[2016-07-29] MEDS: HYDROCHLOROTHIAZIDE 12.5 MG CAP PO SCH (08:28)
[2016-07-29] MEDS: SODIUM CHLORIDE 0.9% FLUSH 10 ML FLUSH SCH ×2 (08:30→23:06)
--- NOTE | 2016-07-29 09:12 | HHI.PR ---
Subjective Remarks Critical Care Notes: 36-year-old very pleasant gentleman is brought in under the [place] Act for a suicide attempt. He took 60 Excedrin at 6 PM. He states that he became nauseous following the ingestion and vomited some pills in a public bathroom. This was witnessed. The witness called the authorities and the patient was brought here. Patient lives at the [facility]. He states that he has recently realized that he might be birch. This is very concerning to him which has caused to feel suicidal. 07/28: Alert, O X 3, cooperative. Medically stable for transfer to Psych. Hospitalist Notes: 07/29: Seen in his bedroom, no nausea, vomit or diarrhea, stable already recommended for discharge to Inpatient psych by healthcare specialist, agree no complaint by patient Objective Vital Signs Date Time Temp Pulse Resp B/P Pulse Ox O2 Delivery O2 Flow Rate FiO2 07/29/16 08:00 97.6 79 18 152/85 99 07/29/16 04:00 98.2 89 16 181/115 97 07/29/16 00:30 99.4 80 17 160/97 97 07/29/16 00:00 79 07/28/16 22:00 74 07/28/16 20:00 99.2 86 20 152/88 96 07/28/16 20:00 85 07/28/16 19:00 98 Room Air 07/28/16 18:00 96 07/28/16 16:00 75 07/28/16 16:00 98.4 84 21 154/85 100 07/28/16 14:00 74 07/28/16 12:00 98 07/28/16 12:00 98.6 89 25 137/58 100 07/28/16 10:00 97 I/O 07/28/16 07/28/16 07/28/16 07/29/16 07/29/16 07/29/16 07:00 15:00 23:00 07:00 15:00 23:00 Intake Total 940 ml 960 ml 720 ml 200 ml Output Total 800 ml 2400 ml 700 ml 250 ml Balance 140 ml -1440 ml 20 ml -50 ml Intake Oral 0 ml 960 ml 720 ml 200 ml IV Total 940 ml 0 ml Output Urine Total 800 ml 2400 ml 700 ml 250 ml # Bowel Movements 0 0 0 0 Result Diagram: 07/28/16 1232 07/28/16 1232 Imaging No Imaging studies performed. Procedures No procedures performed. Other Results Laboratory Tests Test 07/26/16 07/26/16 07/27/16 07/27/16 20:55 21:15 02:00 04:00 Ethyl Alcohol Level LESS THAN 3 MG/DL Urine Opiates Screen NEG Urine Barbiturates Screen NEG Urine Amphetamines Screen NEG Urine Benzodiazepines Screen NEG Urine Cocaine Screen NEG Urine Cannabinoids Screen NEG Venous Blood pH 7.41 Venous Blood Partial Pressure 34 mmHg CO2 Venous Blood Partial Pressure 52 mmHg O2 Venous Blood HCO3 21 mmol/L Venous Blood Oxygen Saturation 85 % Venous Blood Oxygen Content 15.1 Vol % Venous Blood Base Excess -2.6 mmol/L Oxygen Delivery Device ROOM AIR Microscopic Urinalysis Comment Test 07/27/16 07/27/16 07/27/16 07/27/16 05:55 08:57 10:01 13:51 Urine Color YELLOW Urine Turbidity CLEAR Urine pH 5.5 Urine Specific [place] 1.038 Urine Protein TRACE mg/dL Urine Glucose (UA) 1000 mg/dL Urine Ketones 10 mg/dL Urine Occult Blood NEG Urine Nitrite NEG Urine Bilirubin NEG Urine Urobilinogen LESS THAN 2.0 MG/DL Urine Leukocyte Esterase NEG Blood Gas Puncture Site RT RADIAL Blood Gas Patient Temperature 98.6 Blood Gas HCO3 30 mmol/L Blood Gas Base Excess 7.3 mmol/L Blood Gas Oxygen Saturation 96 % Arterial Blood pH 7.57 Arterial Blood Partial 33 mmHg Pressure CO2 Arterial Blood Partial 93 mmHG Pressure O2 Arterial Blood Oxygen Content 17.6 Vol % Arterial Blood 1.0 % Carboxyhemoglobin Arterial Blood Methemoglobin 0.8 % Blood Gas Hemoglobin 12.9 G/DL Blood Gas Inspired Oxygen 21 % Direct Bilirubin LESS THAN 0.1 MG/DL Indirect Bilirubin 0.1 MG/DL Salicylates Level 16.0 MG/DL Test 07/27/16 07/28/16 07/28/16 22:45 04:03 12:32 Nasal Screen MRSA (PCR) MRSA NOT DETECTED Prothrombin Time 12.5 SEC Prothromb Time International 1.1 RATIO Ratio Magnesium Level 2.0 MG/DL Acetaminophen Level LESS THAN 2.0 MCG/ML White Blood Count 16.3 TH/MM3 Red Blood Count 5.87 MIL/MM3 Hemoglobin 13.7 GM/DL Hematocrit 41.4 % Mean Corpuscular Volume 70.5 FL Mean Corpuscular Hemoglobin 23.4 PG Mean Corpuscular Hemoglobin 33.2 % Concent Red Cell Distribution Width 16.7 % Platelet Count 241 TH/MM3 Mean Platelet Volume 8.4 FL Neutrophils (%) (Auto) 82.8 % Lymphocytes (%) (Auto) 7.8 % Monocytes (%) (Auto) 8.5 % Eosinophils (%) (Auto) 0.6 % Basophils (%) (Auto) 0.3 % Neutrophils # (Auto) 13.5 TH/MM3 Lymphocytes # (Auto) 1.3 TH/MM3 Monocytes # (Auto) 1.4 TH/MM3 Eosinophils # (Auto) 0.1 TH/MM3 Basophils # (Auto) 0.0 TH/MM3 CBC Comment AUTO DIFF Differential Total Cells 100 Counted Neutrophils % (Manual) 93 % Lymphocytes % 3 % Monocytes % 3 % Neutrophils # (Manual) 15.3 TH/MM3 Myelocytes 1 % Differential Comment FINAL DIFF MANUAL Platelet Estimate NORMAL Platelet Morphology Comment NORMAL Sodium Level 140 MEQ/L Potassium Level 4.0 MEQ/L Chloride Level 103 MEQ/L Carbon Dioxide Level 27.9 MEQ/L Anion Gap 9 MEQ/L Blood Urea Nitrogen 6 MG/DL Creatinine 1.51 MG/DL Estimat Glomerular Filtration 64 ML/MIN Rate Random Glucose 138 MG/DL Calcium Level 9.5 MG/DL Phosphorus Level 2.8 MG/DL Total Bilirubin 0.2 MG/DL Aspartate Amino Transf 59 U/L (AST/SGOT) Alanine Aminotransferase 50 U/L (ALT/SGPT) Alkaline Phosphatase 68 U/L Total Creatine Kinase 3167 U/L Creatine Kinase MB 3.5 NG/ML Creatine Kinase MB % 0.1 % Total Protein 7.2 GM/DL Albumin 3.3 GM/DL Objective Remarks GENERAL: Well-nourished, well-developed patient. SKIN: Warm and dry. HEAD: Normocephalic. NECK: Supple, trachea midline.Airway widely patent. CARDIOVASCULAR: Regular rate and rhythm without murmurs, gallops, or rubs. No JVD. RESPIRATORY: Breath sounds equal bilaterally. No accessory muscle use. GASTROINTESTINAL: Abdomen soft, non-tender, nondistended. Benign. MUSCULOSKELETAL: No cyanosis, or edema. BACK: Nontender without obvious deformity. No CVA tenderness. EXTREMITIES: No clubbing cyanosis or edema NEURO: O X 3, cooperative. M/S grossly intact. Medications and IVs Current Medications Medications (Trade) Dose Ordered Sig/Arturo Route Start Time Stop Time Status Last Admin (NS Flush) 2 ml UNSCH PRN .XX 07/27/16 05:15 (NS Flush) 2 ml BID .XX 07/27/16 09:00 07/29/16 08:30 Miscellaneous Information 1 Q361D XX 07/27/16 05:15 (Chlorhexidine 2% Cloth) 3 pack Taper DAILY@04 TOP 07/28/16 04:00 07/24/17 03:59 07/28/16 04:00 (Chlorhexidine 2% Cloth) 3 pack UNSCH PRN TOP 07/27/16 05:15 (Zofran Inj) 4 mg Q6HR PRN IV PUSH 07/27/16 09:00 07/27/16 08:51 Promethazine HCl 25 mg 25 mg Q6H PRN PO 07/27/16 14:15 Potassium Chloride 100 ml @ 50 mls/hr Q2H PRN IV 07/27/16 15:30 (KCl 20 Meq Premix Inj) 100 ml @ 50 mls/hr Q2H PRN IV 07/27/16 15:30 07/28/16 02:23 Potassium Bicarb/ Potassium Chloride 50 meq 50 meq UNSCH PRN PO 07/27/16 15:30 Potassium Chloride 100 ml @ 25 mls/hr UNSCH PRN IV 07/27/16 15:30 Potassium Chloride 100 ml @ 50 mls/hr Q2H PRN IV 07/27/16 15:30 (Magnesium Sulfate Inj/NS Inj) 100 ml @ 50 mls/hr UNSCH PRN IV 07/27/16 15:30 Magnesium Oxide 800 mg 800 mg UNSCH PRN PO 07/27/16 15:30 (Magnesium Sulfate Inj/NS Inj) 100 ml @ 50 mls/hr UNSCH PRN IV 07/27/16 15:30 Potassium Phosphate 2000 mg 2,000 mg Q4H PRN PO 07/27/16 15:30 07/28/16 08:06 (Sodium Phosphate Inj/NS 250 ml Inj) 250 ml @ 42 mls/hr UNSCH PRN IV 07/27/16 15:30 (K-Phos) 2,000 mg UNSCH PRN PO/TUBE 07/27/16 15:30 (Norvasc) 5 mg DAILY PO 07/27/16 18:15 07/29/16 08:28 (CeleXA) 20 mg DAILY PO 07/27/16 18:15 07/29/16 08:28 (Microzide) 12.5 mg DAILY PO 07/27/16 18:15 07/29/16 08:28 (Apresoline Inj) 20 mg Q4H PRN IV PUSH 07/27/16 23:15 07/27/16 23:13 A/P Assessment and Plan 1. Metabolic acidosis - Due to Excedrin overdose - Sodium bicarbonate drip - Monitor labs and ABGs - Poison Control Center notified and following - Monitor urine output stable remove Velásquez cath 2. Suicidal attempt already seen by Psychiatry specialist recommended inpatient psych admissino 3. Hypertension uncontrolled increased dosages of Amlodipine DVT GI prophylaxis Overall impression: No residual affects from attempted OD. Medically stable to go to Psychiatry. Discharge Planning Medically clear for Inpatient psych unit. Gael Hardin MD July 29, 2016 09:12 Gael Hardin MD July 29, 2016 09:12
[2016-07-29] MEDS ORDERED: AMLO10TA2 PO (10:06)
--- NOTE | 2016-07-29 10:08 | HHI.DS ---
Discharge Summary Admission Date July 27, 2016 at 04:31 Discharge Date: July 29, 2016 Admitting Diagnosis aspirin OD (1) Suicidal ideation ICD Code: R45.851 (2) Intentional aspirin overdose ICD Code: T39.012A (3) Major depressive disorder ICD Code: F32.9 Procedures No procedures performed. Brief History - From Admission 36-year-old very pleasant gentleman is brought in under the [place] Act for a suicide attempt. He took 60 Excedrin at 6 PM. He states that he became nauseous following the ingestion and vomited some pills in a public bathroom. This was witnessed. The witness called the authorities and the patient was brought here. Patient lives at the [facility]. He states that he has recently realized that he might be birch. This is very concerning to him which has caused to feel suicidal. CBC/BMP: 07/28/16 1232 07/28/16 1232 Significant Findings Laboratory Tests Test 07/26/16 07/26/16 07/27/16 07/27/16 20:55 21:50 00:55 02:00 White Blood Count 13.2 TH/MM3 (4.0-11.0) Mean Corpuscular Volume 70.5 FL (80.0-100.0) Mean Corpuscular Hemoglobin 23.1 PG (27.0-34.0) Monocytes (%) (Auto) 10.2 % (0.0-8.0) Neutrophils # (Auto) 8.9 TH/MM3 (1.8-7.7) Monocytes # (Auto) 1.3 TH/MM3 (0-0.9) Platelet Morphology Comment ENLARGED (NORMAL) Potassium Level 3.4 MEQ/L 2.8 MEQ/L (3.5-5.1) (3.5-5.1) Creatinine 1.35 MG/DL 1.59 MG/DL (0.60-1.30) (0.60-1.30) Estimat Glomerular Filtration 72 ML/MIN (>89) 60 ML/MIN (>89) Rate Random Glucose 132 MG/DL 300 MG/DL (74-106) (74-106) Total Bilirubin 0.1 MG/DL (0.2-1.0) Aspartate Amino Transf 45 U/L (15-37) (AST/SGOT) Acetaminophen Level 43.6 MCG/ML 43.6 MCG/ML (10.0-30.0) (10.0-30.0) Salicylates Level 28.8 MG/DL 29.4 MG/DL (2.8-20.0) (2.8-20.0) Urine Glucose (UA) 1000 mg/dL (NEG) Urine Ketones 10 mg/dL (NEG) Venous Blood pH 7.41 (7.360-7.400) Venous Blood Partial Pressure 34 mmHg (44-48) CO2 Venous Blood Partial Pressure 52 mmHg (35-40) O2 Venous Blood HCO3 21 mmol/L (22-26) Venous Blood Oxygen Saturation 85 % (70-76) Venous Blood Base Excess -2.6 mmol/L (-2-2) Calcium Level 8.3 MG/DL (8.5-10.1) Test 07/27/16 07/27/16 07/27/16 07/27/16 04:00 05:00 05:30 05:55 Urine Glucose (UA) 1000 mg/dL 1000 mg/dL 1000 mg/dL 1000 mg/dL (NEG) (NEG) (NEG) (NEG) Urine Ketones 10 mg/dL (NEG) 10 mg/dL (NEG) 10 mg/dL (NEG) 10 mg/dL (NEG) Salicylates Level 37.7 MG/DL (2.8-20.0) Acetaminophen Level 51.0 MCG/ML (10.0-30.0) Urine Specific [place] 1.038 (1.002-1.035) Test 07/27/16 07/27/16 07/27/16 07/27/16 08:57 10:01 13:51 18:33 Blood Gas HCO3 30 mmol/L (22-26) Blood Gas Base Excess 7.3 mmol/L (-2-2) Arterial Blood pH 7.57 (7.380-7.420) Arterial Blood Partial 33 mmHg (38-42) Pressure CO2 Potassium Level 2.6 MEQ/L 3.3 MEQ/L 2.6 MEQ/L (3.5-5.1) (3.5-5.1) (3.5-5.1) Chloride Level 96 MEQ/L 97 MEQ/L (98-107) (98-107) Creatinine 1.36 MG/DL 1.35 MG/DL 1.65 MG/DL (0.60-1.30) (0.60-1.30) (0.60-1.30) Estimat Glomerular Filtration 72 ML/MIN (>89) 72 ML/MIN (>89) 57 ML/MIN (>89) Rate Random Glucose 201 MG/DL 175 MG/DL (74-106) (74-106) Total Creatine Kinase 874 U/L (39-308) Salicylates Level 25.0 MG/DL (2.8-20.0) Acetaminophen Level 8.5 MCG/ML (10.0-30.0) Blood Urea Nitrogen 6 MG/DL (7-18) Test 07/27/16 07/28/16 07/28/16 23:38 04:03 12:32 Potassium Level 3.2 MEQ/L (3.5-5.1) Creatinine 1.39 MG/DL 1.51 MG/DL (0.60-1.30) (0.60-1.30) Estimat Glomerular Filtration 70 ML/MIN (>89) 64 ML/MIN (>89) Rate Random Glucose 172 MG/DL 138 MG/DL (74-106) (74-106) Phosphorus Level 1.4 MG/DL 2.3 MG/DL (2.5-4.9) (2.5-4.9) Acetaminophen Level 2.0 MCG/ML LESS THAN 2.0 (10.0-30.0) MCG/ML (10.0-30.0) White Blood Count 20.7 TH/MM3 16.3 TH/MM3 (4.0-11.0) (4.0-11.0) Red Blood Count 5.94 MIL/MM3 (4.50-5.90) Mean Corpuscular Volume 69.2 FL 70.5 FL (80.0-100.0) (80.0-100.0) Mean Corpuscular Hemoglobin 23.5 PG 23.4 PG (27.0-34.0) (27.0-34.0) Neutrophils (%) (Auto) 83.8 % 82.8 % (16.0-70.0) (16.0-70.0) Lymphocytes (%) (Auto) 7.1 % 7.8 % (9.0-44.0) (9.0-44.0) Monocytes (%) (Auto) 8.8 % (0.0-8.0) 8.5 % (0.0-8.0) Neutrophils # (Auto) 17.4 TH/MM3 13.5 TH/MM3 (1.8-7.7) (1.8-7.7) Monocytes # (Auto) 1.8 TH/MM3 1.4 TH/MM3 (0-0.9) (0-0.9) Prothrombin Time 12.5 SEC (9.8-11.6) Neutrophils % (Manual) 93 % (16-70) Lymphocytes % 3 % (9-44) Neutrophils # (Manual) 15.3 TH/MM3 (1.8-7.7) Myelocytes 1 % (0-0) Blood Urea Nitrogen 6 MG/DL (7-18) Aspartate Amino Transf 59 U/L (15-37) (AST/SGOT) Total Creatine Kinase 3167 U/L (39-308) Albumin 3.3 GM/DL (3.4-5.0) Imaging No Imaging studies performed. PE at Discharge GENERAL: Well-nourished, well-developed patient. SKIN: Warm and dry. HEAD: Normocephalic. NECK: Supple, trachea midline.Airway widely patent. CARDIOVASCULAR: Regular rate and rhythm without murmurs, gallops, or rubs. No JVD. RESPIRATORY: Breath sounds equal bilaterally. No accessory muscle use. GASTROINTESTINAL: Abdomen soft, non-tender, nondistended. Benign. MUSCULOSKELETAL: No cyanosis, or edema. BACK: Nontender without obvious deformity. No CVA tenderness. EXTREMITIES: No clubbing cyanosis or edema NEURO: O X 3, cooperative. M/S grossly intact. Transfer Summary 36-year-old very pleasant gentleman is brought in under the Worrell Act for a suicide attempt. He took 60 Excedrin at 6 PM. He states that he became nauseous following the ingestion and vomited some pills in a public bathroom. This was witnessed. The witness called the authorities and the patient was brought here. [facility]. He states that he has recently realized that he might be birch. This is very concerning to him which has caused to feel suicidal. 07/28: Alert, O X 3, cooperative. Medically stable for transfer to Psych. Hospital Course Critical Care Notes: 36-year-old very pleasant gentleman is brought in under the Worrell Act for a suicide attempt. He took 60 Excedrin at 6 PM. He states that he became nauseous following the ingestion and vomited some pills in a public bathroom. This was witnessed. The witness called the authorities and the patient was brought here. Patient lives at the [facility]. He states that he has recently realized that he might be birch. This is very concerning to him which has caused to feel suicidal. 07/28: Alert, O X 3, cooperative. Medically stable for transfer to Psych. Hospitalist Notes: 07/29: Seen in his bedroom, no nausea, vomit or diarrhea, stable already recommended for discharge to Inpatient psych by flight communications specialist, agree no complaint by patient Assessment and Plan 1. Metabolic acidosis - Due to Excedrin overdose - Sodium bicarbonate drip - Monitor labs and ABGs - Poison Control Center notified and following - Monitor urine output stable remove Velásquez cath 2. Suicidal attempt already seen by Psychiatry specialist recommended inpatient psych admissino 3. Hypertension uncontrolled increased dosages of Amlodipine DVT GI prophylaxis Overall impression: No residual affects from attempted OD. Medically stable to go to Psychiatry. Discharge Planning Medically clear for Inpatient psych unit. Pt Condition on Discharge: Good Discharge Disposition: Disc to Psych Care Fac Discharge Time: <= 30 minutes Discharge Instructions DIET: Follow Instructions for: Heart Healthy Diet Activities you can perform: Regular-No Restrictions Gael Hardin MD July 29, 2016 10:08
[2016-07-30] VITALS (7 sets, daily range): BP systolic 129–172; BP diastolic 81–105; PULSE 71–85; RESP 16–22; TEMP 96.8–98.3; O2SAT 97–99
[2016-07-30] MEDS: CITALOPRAM HYDROBROMIDE 20 MG TAB PO SCH (09:07)
[2016-07-30] MEDS: HYDROCHLOROTHIAZIDE 12.5 MG CAP PO SCH (09:07)
[2016-07-30] MEDS: SODIUM CHLORIDE 0.9% FLUSH 10 ML FLUSH SCH ×2 (09:20→20:17)
--- NOTE | 2016-07-30 12:37 | HHI.PR ---
Subjective Remarks Critical Care Notes: 36-year-old very pleasant gentleman is brought in under the Worrell Act for a suicide attempt. He took 60 Excedrin at 6 PM. He states that he became nauseous following the ingestion and vomited some pills in a public bathroom. This was witnessed. The witness called the authorities and the patient was brought here. Patient lives at the [facility]. He states that he has recently realized that he might be birch. This is very concerning to him which has caused to feel suicidal. 07/28: Alert, O X 3, cooperative. Medically stable for transfer to Psych. Hospitalist Notes: 07/29: Already recommended for discharge to Inpatient psych by installation specialist. 07/30: Seen in his bedroom in the presence of nurse and sitter no new complaint, no nausea, vomit or diarrhea, was not possible to be discharged yesterday, awaiting for [facility] outside of the [facility], has high blood pressure. Objective Vital Signs Date Time Temp Pulse Resp B/P Pulse Ox O2 Delivery O2 Flow Rate FiO2 07/30/16 08:00 98.2 82 17 172/105 99 07/30/16 03:29 98.3 73 22 159/93 97 07/30/16 00:13 97.7 82 18 168/97 97 07/29/16 21:17 Room Air 07/29/16 20:00 97.6 75 18 166/96 99 07/29/16 16:00 98.3 87 18 160/89 98 I/O 07/29/16 07/29/16 07/29/16 07/30/16 07/30/16 07/30/16 07:00 15:00 23:00 07:00 15:00 23:00 Intake Total 200 ml 980 ml 360 ml 90 ml Output Total 250 ml 800 ml Balance -50 ml 180 ml 360 ml 90 ml Intake Oral 200 ml 980 ml 360 ml 90 ml Output Urine Total 250 ml 800 ml # Voids 1 1 # Bowel Movements 0 0 Result Diagram: 07/28/16 1232 07/28/16 1232 Imaging No Imaging studies performed. Procedures No procedures performed. Other Results Laboratory Tests Test 07/26/16 07/26/16 07/27/16 07/27/16 20:55 21:15 02:00 04:00 Ethyl Alcohol Level LESS THAN 3 MG/DL Urine Opiates Screen NEG Urine Barbiturates Screen NEG Urine Amphetamines Screen NEG Urine Benzodiazepines Screen NEG Urine Cocaine Screen NEG Urine Cannabinoids Screen NEG Venous Blood pH 7.41 Venous Blood Partial Pressure 34 mmHg CO2 Venous Blood Partial Pressure 52 mmHg O2 Venous Blood HCO3 21 mmol/L Venous Blood Oxygen Saturation 85 % Venous Blood Oxygen Content 15.1 Vol % Venous Blood Base Excess -2.6 mmol/L Oxygen Delivery Device ROOM AIR Microscopic Urinalysis Comment Test 07/27/16 07/27/16 07/27/16 07/27/16 05:55 08:57 10:01 13:51 Urine Color YELLOW Urine Turbidity CLEAR Urine pH 5.5 Urine Specific Widen 1.038 Urine Protein TRACE mg/dL Urine Glucose (UA) 1000 mg/dL Urine Ketones 10 mg/dL Urine Occult Blood NEG Urine Nitrite NEG Urine Bilirubin NEG Urine Urobilinogen LESS THAN 2.0 MG/DL Urine Leukocyte Esterase NEG Blood Gas Puncture Site RT RADIAL Blood Gas Patient Temperature 98.6 Blood Gas HCO3 30 mmol/L Blood Gas Base Excess 7.3 mmol/L Blood Gas Oxygen Saturation 96 % Arterial Blood pH 7.57 Arterial Blood Partial 33 mmHg Pressure CO2 Arterial Blood Partial 93 mmHG Pressure O2 Arterial Blood Oxygen Content 17.6 Vol % Arterial Blood 1.0 % Carboxyhemoglobin Arterial Blood Methemoglobin 0.8 % Blood Gas Hemoglobin 12.9 G/DL Blood Gas Inspired Oxygen 21 % Direct Bilirubin LESS THAN 0.1 MG/DL Indirect Bilirubin 0.1 MG/DL Salicylates Level 16.0 MG/DL Test 07/27/16 07/28/16 07/28/16 22:45 04:03 12:32 Nasal Screen MRSA (PCR) MRSA NOT DETECTED Prothrombin Time 12.5 SEC Prothromb Time International 1.1 RATIO Ratio Magnesium Level 2.0 MG/DL Acetaminophen Level LESS THAN 2.0 MCG/ML White Blood Count 16.3 TH/MM3 Red Blood Count 5.87 MIL/MM3 Hemoglobin 13.7 GM/DL Hematocrit 41.4 % Mean Corpuscular Volume 70.5 FL Mean Corpuscular Hemoglobin 23.4 PG Mean Corpuscular Hemoglobin 33.2 % Concent Red Cell Distribution Width 16.7 % Platelet Count 241 TH/MM3 Mean Platelet Volume 8.4 FL Neutrophils (%) (Auto) 82.8 % Lymphocytes (%) (Auto) 7.8 % Monocytes (%) (Auto) 8.5 % Eosinophils (%) (Auto) 0.6 % Basophils (%) (Auto) 0.3 % Neutrophils # (Auto) 13.5 TH/MM3 Lymphocytes # (Auto) 1.3 TH/MM3 Monocytes # (Auto) 1.4 TH/MM3 Eosinophils # (Auto) 0.1 TH/MM3 Basophils # (Auto) 0.0 TH/MM3 CBC Comment AUTO DIFF Differential Total Cells 100 Counted Neutrophils % (Manual) 93 % Lymphocytes % 3 % Monocytes % 3 % Neutrophils # (Manual) 15.3 TH/MM3 Myelocytes 1 % Differential Comment FINAL DIFF MANUAL Platelet Estimate NORMAL Platelet Morphology Comment NORMAL Sodium Level 140 MEQ/L Potassium Level 4.0 MEQ/L Chloride Level 103 MEQ/L Carbon Dioxide Level 27.9 MEQ/L Anion Gap 9 MEQ/L Blood Urea Nitrogen 6 MG/DL Creatinine 1.51 MG/DL Estimat Glomerular Filtration 64 ML/MIN Rate Random Glucose 138 MG/DL Calcium Level 9.5 MG/DL Phosphorus Level 2.8 MG/DL Total Bilirubin 0.2 MG/DL Aspartate Amino Transf 59 U/L (AST/SGOT) Alanine Aminotransferase 50 U/L (ALT/SGPT) Alkaline Phosphatase 68 U/L Total Creatine Kinase 3167 U/L Creatine Kinase MB 3.5 NG/ML Creatine Kinase MB % 0.1 % Total Protein 7.2 GM/DL Albumin 3.3 GM/DL Objective Remarks GENERAL: Well-nourished, well-developed patient. SKIN: Warm and dry. HEAD: Normocephalic. NECK: Supple, trachea midline.Airway widely patent. CARDIOVASCULAR: Regular rate and rhythm without murmurs, gallops, or rubs. No JVD. RESPIRATORY: Breath sounds equal bilaterally. No accessory muscle use. GASTROINTESTINAL: Abdomen soft, non-tender, nondistended. Benign. MUSCULOSKELETAL: No cyanosis, or edema. BACK: Nontender without obvious deformity. No CVA tenderness. EXTREMITIES: No clubbing cyanosis or edema NEURO: O X 3, cooperative. M/S grossly intact. Medications and IVs Current Medications Medications (Trade) Dose Ordered Sig/Arturo Route Start Time Stop Time Status Last Admin (NS Flush) 2 ml UNSCH PRN .XX 07/27/16 05:15 (NS Flush) 2 ml BID .XX 07/27/16 09:00 07/30/16 09:20 Miscellaneous Information 1 Q361D XX 07/27/16 05:15 (Chlorhexidine 2% Cloth) 3 pack Taper DAILY@04 TOP 07/28/16 04:00 07/24/17 03:59 07/28/16 04:00 (Chlorhexidine 2% Cloth) 3 pack UNSCH PRN TOP 07/27/16 05:15 (Zofran Inj) 4 mg Q6HR PRN IV PUSH 07/27/16 09:00 07/27/16 08:51 Promethazine HCl 25 mg 25 mg Q6H PRN PO 07/27/16 14:15 Potassium Chloride 100 ml @ 50 mls/hr Q2H PRN IV 07/27/16 15:30 (KCl 20 Meq Premix Inj) 100 ml @ 50 mls/hr Q2H PRN IV 07/27/16 15:30 07/28/16 02:23 Potassium Bicarb/ Potassium Chloride 50 meq 50 meq UNSCH PRN PO 07/27/16 15:30 Potassium Chloride 100 ml @ 25 mls/hr UNSCH PRN IV 07/27/16 15:30 Potassium Chloride 100 ml @ 50 mls/hr Q2H PRN IV 07/27/16 15:30 (Magnesium Sulfate Inj/NS Inj) 100 ml @ 50 mls/hr UNSCH PRN IV 07/27/16 15:30 Magnesium Oxide 800 mg 800 mg UNSCH PRN PO 07/27/16 15:30 (Magnesium Sulfate Inj/NS Inj) 100 ml @ 50 mls/hr UNSCH PRN IV 07/27/16 15:30 Potassium Phosphate 2000 mg 2,000 mg Q4H PRN PO 07/27/16 15:30 07/28/16 08:06 (Sodium Phosphate Inj/NS 250 ml Inj) 250 ml @ 42 mls/hr UNSCH PRN IV 07/27/16 15:30 (K-Phos) 2,000 mg UNSCH PRN PO/TUBE 07/27/16 15:30 (CeleXA) 20 mg DAILY PO 07/27/16 18:15 07/30/16 09:07 (Microzide) 12.5 mg DAILY PO 07/27/16 18:15 07/30/16 09:07 (Apresoline Inj) 20 mg Q4H PRN IV PUSH 07/27/16 23:15 07/27/16 23:13 (Norvasc) 10 mg DAILY PO 07/30/16 09:00 07/30/16 09:07 A/P Assessment and Plan 1. Metabolic acidosis - Due to Excedrin overdose - Sodium bicarbonate drip - Monitor labs and ABGs - Poison Control Center notified and following - Monitor urine output stable remove Velásquez cath 2. Suicidal attempt already seen by Psychiatry specialist recommended inpatient psych admission 3. Hypertension uncontrolled was increased Amlodipine to 10 mg yesterday and HCTZ to 25 mg today continue clonidine as needed for systolic blood pressure 160 mm Hg. or over. DVT GI prophylaxis Overall impression: No residual affects from attempted OD. Medically stable to go to Psychiatry. Discussed with Patient, Nurse and Sitter in the room. Discharge Planning Medically clear for Inpatient psych unit. Gael Hardin MD July 30, 2016 12:37
[2016-07-30] MEDS ORDERED: cloNIDine HCL 0.1 MG TAB PO PRN (12:45)
[2016-07-30] MEDS: CHLORHEXIDINE GLUCONATE 2 % 1 PACK (2 CLOTHS) TOP SCH (20:17)
[2016-07-31 04:10] VITALS: BP 136/87; PULSE 78; RESP 18; TEMP 97; O2SAT 99
[2016-07-31 08:39] VITALS: BP 142/85; PULSE 76; RESP 17; TEMP 97.8; O2SAT 98
[2016-07-31] MEDS: SODIUM CHLORIDE 0.9% FLUSH 10 ML FLUSH SCH ×2 (09:00→21:00)
[2016-07-31] MEDS: HYDROCHLOROTHIAZIDE 25 MG TAB PO SCH (09:51)
[2016-07-31] MEDS: CITALOPRAM HYDROBROMIDE 20 MG TAB PO SCH (09:51)
[2016-07-31 11:40] VITALS: BP 142/89; PULSE 74; RESP 18; TEMP 97.5; O2SAT 99
--- NOTE | 2016-07-31 13:19 | HHI.PR ---
Subjective Remarks Follow up aspirin overdose. Patient has no complaints at this time. No nausea/ vomiting. No chest pain or dyspnea. Objective Vitals Vital Signs Date Time Temp Pulse Resp B/P Pulse Ox O2 Delivery O2 Flow Rate FiO2 07/31/16 11:40 97.5 74 18 142/89 99 07/31/16 08:39 97.8 76 17 142/85 98 07/31/16 04:10 97.0 78 18 136/87 99 07/30/16 23:45 97.5 71 18 129/85 98 07/30/16 22:03 Room Air 07/30/16 19:50 98.3 71 18 142/86 99 07/30/16 16:00 96.8 85 16 137/81 99 I/O 07/30/16 07/30/16 07/30/16 07/31/16 07/31/16 07/31/16 07:00 15:00 23:00 07:00 15:00 23:00 Intake Total 90 ml 720 ml 480 ml 480 ml Output Total 850 ml Balance 90 ml -130 ml 480 ml 480 ml Intake Oral 90 ml 720 ml 480 ml 480 ml Output Urine Total 850 ml # Voids 1 4 2 2 # Bowel Movements 0 0 Result Diagram: 07/28/16 1232 07/28/16 1232 Objective Remarks General: No acute distress. Heart: Regular rate and rhythm. No murmur. Lungs: Clear to auscultation bilaterally. No wheezes, rales, or rhonchi. Breathing is nonlabored. Abdomen: Soft, nontender, nondistended. Extremities: No lower extremity edema. Psych: Alert and oriented. Procedures None Urinary Catheter: No Vascular Central Line Catheter: No A/P Problem List: (1) Suicidal ideation ICD Code: R45.851 Status: Acute (2) Intentional aspirin overdose ICD Code: T39.012A Status: Acute (3) Major depressive disorder ICD Code: F32.9 Status: Acute Assessment and Plan 1. Intentional aspirin overdose, suicide attempt: Clinically improved. Appreciate psychiatry recommendations. Awaiting bed availability in psychiatric unit. 2. Metabolic acidosis secondary to Excedrin overdose: Clinically improved. 3. Major depressive disorder, suicide attempt: Appreciate psychiatry recommendations. Admitted under Worrell act. Sitter in the room. The patient is medically stable for discharge to inpatient psychiatry. Discharge Planning Discharged inpatient psychiatry when a bed is available. Problem Qualifiers (1) Intentional aspirin overdose: Qualified Code: T39.012A - Intentional aspirin overdose, initial encounter (2) Major depressive disorder: Charanjit Cartwright MD July 31, 2016 13:19
[2016-07-31 15:40] VITALS: BP 142/77; PULSE 73; RESP 18; TEMP 96.7; O2SAT 98
[2016-07-31 19:46] VITALS: BP 130/74; PULSE 71; RESP 17; TEMP 97.8; O2SAT 98
[2016-07-31] MEDS: CHLORHEXIDINE GLUCONATE 2 % 1 PACK (2 CLOTHS) TOP SCH (21:59)
[2016-07-31 23:43] VITALS: BP 142/85; PULSE 70; RESP 18; TEMP 96.6; O2SAT 98
[2016-08-01 03:48] VITALS: BP 139/82; PULSE 68; RESP 18; TEMP 97.4; O2SAT 99
[2016-08-01 07:42] VITALS: PULSE 95
[2016-08-01 08:00] VITALS: BP 135/82; PULSE 81; RESP 16; TEMP 97.1; O2SAT 98
[2016-08-01] MEDS: SODIUM CHLORIDE 0.9% FLUSH 10 ML FLUSH SCH (09:00)
[2016-08-01] MEDS: HYDROCHLOROTHIAZIDE 25 MG TAB PO SCH ×2 (09:00→10:59)
[2016-08-01] MEDS: CITALOPRAM HYDROBROMIDE 20 MG TAB PO SCH ×2 (09:00→10:59)
[2016-08-01] MEDS ORDERED: HYDR12.57 PO (15:17)
[2016-08-01] MEDS ORDERED: CELE20TA PO (15:17)
== END 2016-08-01 11:43 | DRG 918 ==
LOC: EDBD → NEPE 20:26 → NEDA 07-27 04:31 → N03A 07-27 09:27 → N06A 07-29 00:17
PROVIDERS: ADMIT Family Medicine; ATTEND Family Medicine
DX: T39.012A Poisoning by aspirin, intentional self-harm, initial encounter (principal); E87.2 Acidosis; T39.1X2A Poisoning by 4-Aminophenol derivatives, intentional self-harm, initial encounter; I10 Essential (primary) hypertension; F32.9 Major depressive disorder, single episode, unspecified; E87.6 Hypokalemia; Z56.0 Unemployment, unspecified; Z59.0 Homelessness; Z62.810 Personal history of physical and sexual abuse in childhood; Z72.0 Tobacco use
CPT/HCPCS: 36600; 51702; 80048; 80053; 80076; 80307; 81003; 82550; 82552; 82805; 83735; 84100; 85007; 85025; 85027; 85610; 87641; 96365; 96366; 96375; 96376; 99292; J0132; J0171; J0360; J2405; J3480; J7030; J7060; J7070

== ENCOUNTER 2016-08-01 12:06 | Inpatient (IN) | payer OTHER ==
[~2016-08-01] VITALS: Ht 175.3 cm; Wt 72.1 kg
[2016-08-01 11:50] VITALS: BP 147/86; PULSE 77; RESP 18; TEMP 96.6; O2SAT 100
[~2016-08-01 12:06] MED LIST: AMLO10TA2 PO; AMLO5TAB2 PO; ANTA250T PO; CELE20TA PO; HYDR12.57 PO
[2016-08-01] MEDS ORDERED: MAGNESIUM HYDROXIDE SUSP 30 ML CUP PO PRN (15:00)
[2016-08-01] MEDS ORDERED: ALUMINUM/MAGNESIUM/SIMETH 30 ML CUP PO PRN (15:00)
[2016-08-01] MEDS ORDERED: ACETAMINOPHEN 325 MG TAB PO PRN (15:00)
[2016-08-01] MEDS ORDERED: LORazepam 1 MG TAB PO PRN (15:00)
[2016-08-01] MEDS ORDERED: NICOTINE 21 MG/24 HR PATCH T-DERMAL SCH (15:00)
[2016-08-01] MEDS ORDERED: LORazepam 0.5 MG TAB PO PRN (15:00)
[2016-08-01] MEDS ORDERED: LORazepam 2 MG/ML VIAL IM PRN ×2 (15:00)
[2016-08-01] MEDS ORDERED: HYDR12.57 PO (15:17)
[2016-08-01] MEDS ORDERED: CELE20TA PO (15:17)
--- NOTE | 2016-08-01 15:23 | HHI.HP ---
Provisional Diagnosis Admission Date August 01, 2016 at 12:06 [place] I. Adjustment disorder with mixed disturbance of emotion and conduct. Certification of Person's Competence To Provide Express and Informed Consent I have personally examined Law Bey , a person being served at [facility] on, August 01, 2016 15:19. Express and informed consent means consent voluntarily given in writing, by a competent person, after sufficient explanation and disclosure of the subject matter involved to enable the person to make a knowing and willful decision without any element of force, fraud, deceit, duress, or other form of constraint or coercion. This person is 18 years of age or older, is not now known to be incompetent to consent to treatment with a guardian advocate, and does not have a health care surrogate or proxy currently making medical treatment decisions. I have found this person to be one of the following: [X] Competent to provide express and informed consent, as defined above, for voluntary admission to this facility and is competent to provide express and informed consent for treatment. He/she has the consistent capacity to make well reasoned, willful, and knowing decisions concerning his or her medical or mental health treatment. The person fully and consistently understands the purpose of the admission for examination/placement and is fully capable of personally exercising all rights [place] Incompetent to provide express and informed consent to voluntary admission, and this is incompetent to provide express and informed consent to treatment. The person must be transferred to involuntary status and a petition for a guardian advocate filed with the Circuit Court. [] Refusing to provide express and informed consent to voluntary admission but is competent to provide express and informed consent for treatment. The person must be discharged or transferred to involuntary status. Form shall be completed within 24 hours of a person's arrival at the receiving facility and filed in the clinical record of each person: 1. Admitted on a voluntary basis 2. Permitted to provide express and informed consent to his/her own treatment 3. Allowed to transfer from involuntary to voluntary status 4. Prior to permitting a person to consent to his or her own treatment after having been previously found incompetent to consent to treatment. History of Present Illness Capacity: Has Capacity HPI Admitted after Excedrin overdose 1 week ago. Patient questioning sexuality and from his partner. Lives at [facility]. Denies suicidal ideation , plan or intent. Appears happy and smiling and has plans to return to [facility] for further assistance with education and housing. Review of Systems Except as stated in HPI: all other systems reviewed are Neg Past Psych History Psychological trauma history None Violence risk - others (6 mos) Minimal Violence risk - self (6 mos) Minimal Substance Abuse History Drugs/Alcohol past 12 months Denied Past Family Social History Coded Allergies: No Known Allergies (Unverified , 07/26/16) Active Scripts Citalopram (Celexa)20 Mg Tab20 Mg PO DAILY #30 TAB Ref 0 Prov:Art Smith MD 08/01/16 Hydrochlorothiazide 12.5 Mg Cap12.5 Mg PO DAILY 30 Days Ref 0 Prov:Art Smith MD 08/01/16 Amlodipine 10 Mg Tab10 Mg PO DAILY #30 TAB Ref 0 Prov:Gael Hardin MD 07/29/16 Reported Medications Disulfiram (Antabuse)250 Mg Rvy074 Mg PO DAILY #30 TAB Ref 0 07/26/16 Discontinued Reported Medications Citalopram (Celexa)20 Mg Tab20 Mg PO DAILY #30 TAB Ref 0 07/26/16 Hydrochlorothiazide 12.5 Mg Cap12.5 Mg PO DAILY #30 CAP Ref 0 07/26/16 Amlodipine 5 Mg Tab5 Mg PO DAILY #30 TAB Ref 0 07/26/16 Current Medications Medications (Trade) Dose Ordered Sig/Arturo Route Start Time Stop Time Status Last Admin (Ativan) 1 mg Q6H PRN PO 08/01/16 15:00 (Ativan Inj) 1 mg Q6H PRN IM 08/01/16 15:00 (Tylenol) 650 mg Q4H PRN PO 08/01/16 15:00 (Milk Of Magnesia Liq) 30 ml DAILY PRN PO 08/01/16 15:00 (Mag-Al Plus Susp Liq) 30 ml Q6H PRN PO 08/01/16 15:00 (Habitrol 21 Mg Patch.24 Hr) 1 patch DAILY T-DERMAL 08/01/16 15:00 Miscellaneous Information 1 HS T-DERMAL 08/01/16 21:00 Family History Positive for mood and anxiety disorders Social History . Homeless. Lives the [facility]. 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 Patient's Strengths (min. 2) Verbal and has access to healthcare. Physical Exam GENERAL: SKIN: Warm and dry. HEAD: Normocephalic. EYES: No scleral icterus. No injection or drainage. NECK: Supple, trachea midline. No JVD or lymphadenopathy. CARDIOVASCULAR: Regular rate and rhythm without murmurs, gallops, or rubs. RESPIRATORY: Breath sounds equal bilaterally. No accessory muscle use. GASTROINTESTINAL: Abdomen soft, non-tender, nondistended. MUSCULOSKELETAL: No cyanosis, or edema. BACK: Nontender without obvious deformity. No CVA tenderness. Vital Signs Vital Signs Date Time Temp Pulse Resp B/P Pulse Ox O2 Delivery O2 Flow Rate FiO2 08/01/16 11:50 96.6 77 18 147/86 100 Mental Status Examination Speech: Unremarkable Orientation: x3 Memory: Unremarkable Thought Process: Organized, Goal Directed Thought Content: Unremarkable Hallucination Type: None Attention and Concentration: Good Suicidal Ideation: No Previous Suicide Attempts: Yes Homicidal Ideation: No Previous Homicide Attempts: No Insight: Fair Judgment: WNL Affect: Good Mood: Appropriate Motor Activity: Normal gait Assessment & Plan Problem List: (1) Adjustment disorder with mixed disturbance of emotions and conduct ICD Code: F43.25 Assessment & Plan Estimated LOS: Less than 24 hours days does not require inpatient psychiatric hospitalization in my opinion. Patient smiling and happy and wants to return to [facility]. Art Smith MD August 01, 2016 15:23
[2016-08-01] MEDS ORDERED: REMOVE OLD NICODERM (NICOTINE) PATCH T-DERMAL SCH (21:00)
== END 2016-08-01 15:55 | disposition home or self-care (01) | DRG 882 ==
LOC: H260 12:06
PROVIDERS: ADMIT Psychiatry & Neurology Psychiatry; ATTEND Psychiatry & Neurology Psychiatry
DX: F43.25 Adjustment disorder with mixed disturbance of emotions and conduct (principal); Z59.0 Homelessness